=== PATIENT | female | born 1975 | race Two or more races ===

== ENCOUNTER 2021-11-11 23:50 | Emergency (ER) | payer SELFPAY ==
[~2021-11-11] VITALS: Ht 162.6 cm; Wt 77.1 kg
[2021-11-12] VITALS: BP 144/80
[2021-11-12] MEDS ORDERED: IBUPROFEN 600 MG TABLET ONE (00:37)
[2021-11-12] MEDS ORDERED: HYDROCODONE/APAP 5/325MG TABLET ONE (00:37)
[2021-11-12] MEDS ORDERED: NAPR500T6 PO (00:47)
[2021-11-12] MEDS ORDERED: HYDROCODONE/APAP 5/325MG TABLET PO ONE (01:00)
[2021-11-12] MEDS ORDERED: IBUPROFEN 600 MG TABLET PO ONE (01:00)
== END 2021-11-12 01:04 | disposition home or self-care (01) ==
LOC: ER 23:53
DX: S99.921A Unspecified injury of right foot, initial encounter (principal); W22.8XXA Striking against or struck by other objects, initial encounter; Y93.89 Activity, other specified; Y92.89 Other specified places as the place of occurrence of the external cause; Y99.8 Other external cause status